=== PATIENT | female | born 1950 | race Caucasian/White ===

== ENCOUNTER → 2016-09-28 | Outpatient (CLI) | payer BC ==
[~2016-09-28] MED LIST: No meds per pt.
== END | disposition home or self-care (01) ==
LOC: STAR 07:51
PROVIDERS: ATTEND Specialist
DX: Z01.818 Encounter for other preprocedural examination (principal); N81.11 Cystocele, midline; N81.6 Rectocele; N81.4 Uterovaginal prolapse, unspecified
CPT/HCPCS: 36415; 85025; 93005

== ENCOUNTER 2016-10-10 07:48 | Day surgery (SDC) | payer BC ==
[~2016-10-10] VITALS: Ht 167.6 cm; Wt 84.5 kg
[2016-10-10] MEDS ORDERED: LACTATED RINGERS 1,000 ML IV SCH (08:25)
[2016-10-10 08:58] VITALS: BP 117/72
[2016-10-10] MEDS ORDERED: FENTANYL PF 250 MCG/5ML ONE (10:01)
[2016-10-10] MEDS ORDERED: PHENYLEPHRINE 10 MG/ML ONE (10:06)
[2016-10-10] MEDS ORDERED: CEFOTETAN 2 GM ONE (10:06)
[2016-10-10] MEDS ORDERED: PROPOFOL 10 MG/ML, 20ML ONE (10:06)
[2016-10-10] MEDS ORDERED: ROCURONIUM 10 MG/ML ONE (10:06)
[2016-10-10] MEDS ORDERED: DEXAMETHASONE 4 MG/ML, 1ML ONE (10:06)
[2016-10-10] MEDS ORDERED: ONDANSETRON 2MG/ML, 2ML ONE (10:06)
[2016-10-10] MEDS ORDERED: SUCCINYLCHOLINE 20 MG/ML, 10ML ONE (10:06)
[2016-10-10] MEDS ORDERED: BUPIVACAINE/PF 0.25% INFIL ONE (10:42)
[2016-10-10] MEDS ORDERED: FLUORESCEIN SODIUM 500 MG/5 ML IV ONE (10:42)
[2016-10-10] MEDS ORDERED: LABETALOL 5MG/ML, 20ML IV PRN (12:00)
[2016-10-10] MEDS ORDERED: ONDANSETRON 2MG/ML, 2ML IVPush PRN (12:00)
[2016-10-10] MEDS ORDERED: EPHEDRINE 50 MG/ML, 1ML IVPush PRN (12:00)
[2016-10-10] MEDS ORDERED: METOCLOPRAMIDE 5 MG/ML, 2ML IV PRN (12:00)
[2016-10-10] MEDS ORDERED: HYDROmorphone 1 MG/ML, 1ML IV PRN (12:00)
[2016-10-10] MEDS ORDERED: METOPROLOL 1 MG/ML, 5ML IV PRN (12:00)
[2016-10-10] MEDS ORDERED: ACETAMINOPHEN 325 MG TABLET PO PRN (12:00)
[2016-10-10] MEDS ORDERED: PROMETHAZINE 25 MG/ML, 1ML IV PRN (12:00)
[2016-10-10] MEDS ORDERED: FENTANYL PF 100 MCG/2ML IV PRN (12:00)
[2016-10-10] MEDS ORDERED: OXYcodone 5 MG/5 ML ORAL.SOL UDC PO PRN (12:00)
[2016-10-10] MEDS ORDERED: hydrALAzine 20 MG/ML, 1ML IV PRN (12:00)
[2016-10-10] MEDS ORDERED: NEOMY/POLYMYXIN B GU IRR. 1 ML IRRIG ONE (12:06)
[2016-10-10] MEDS ORDERED: THROMBIN 5,000 UNIT VIAL TP ONE (12:07)
[2016-10-10] MEDS ORDERED: BUPIVACAINE/PF-EPI 0.25% 1:200K INFIL ONE (12:09)
[2016-10-10] MEDS ORDERED: ACETAMINOPHEN 325 MG TABLET ONE (14:01)
[2016-10-10] MEDS ORDERED: FENTANYL PF 100 MCG/2ML ONE (14:01)
[2016-10-10] MEDS ORDERED: OXYcodone 5 MG/5 ML ORAL.SOL UDC ONE (14:02)
== END 2016-10-10 18:20 | disposition home or self-care (01) ==
LOC: OUT 07:48
PROVIDERS: ATTEND Specialist
DX: N81.4 Uterovaginal prolapse, unspecified (principal); D25.0 Submucous leiomyoma of uterus; N84.0 Polyp of corpus uteri; D27.0 Benign neoplasm of right ovary; Z72.89 Other problems related to lifestyle; Z80.1 Family history of malignant neoplasm of trachea, bronchus and lung; Z80.41 Family history of malignant neoplasm of ovary
CPT/HCPCS: 57260; 57283; 58571; 88307; J0330; J1100; J2370; J2405; J2704; J3010; J3490; J7120; S2900; S0074